=== PATIENT | female | born 1995 | race Two or more races ===

== ENCOUNTER 2022-12-04 12:33 | Emergency (ER) | payer OTHER ==
[~2022-12-04] VITALS: Ht 165.1 cm; Wt 83.9 kg
[2022-12-04] MEDS ORDERED: DUI500 PO (16:27)
== END 2022-12-04 16:51 | disposition home or self-care (01) ==
LOC: ER 12:33 → EDBD 12:37 → ER 12:37
DX: J03.90 Acute tonsillitis, unspecified (principal); R10.9 Unspecified abdominal pain; R53.81 Other malaise; Z20.822 Contact with and (suspected) exposure to COVID-19; Z88.2 Allergy status to sulfonamides